=== PATIENT | female | born 1960 | race Caucasian/White ===

== ENCOUNTER 2016-11-06 06:11 | Day surgery (SDC) | payer BC ==
[~2016-11-06 06:11] MED LIST: ALPRAZOLAM0.5 M3 PO; ASPIRIN325 M3 PO; ATIVAN0.5 MG PO; ATORVASTATIN CA20 MG PO; BABY ASPIRIN81 MG PO; CALTRATE 600 W1 EACH PO; CIPRO750 M1 PO; CRESTOR5 M1 PO; CYCLOBENZAPRINE10 M1 PO; ENTERIC COATED325 M PO; FETZIMA120 MG PO; GABAPENTIN300 MG PO; KEFLEX250 MG PO; KEFLEX500 M2 PO; LORAZEPAM0.5 MG PO; LOVASTATIN PO; MULTIVITAMIN; NORCO 5-325 TA1 EACH PO; SERTRALINE HCL PO; SIMVASTATIN; SYNTHROID100 MCG PO; SYNTHROID125 MCG; SYNTHROID88 MC1 PO; VITAMIN D; WELCHOL625 MG PO; ZOFRAN ODT4 MG PO; ZOLOFT100 MG; ZOLOFT100 MG PO; ZOVIRAX OINTMEN15 GM AP; [UNRECOGNIZED DRUG - OTHER]; [UNRECOGNIZED DRUG - OTHER]
== END 2016-11-06 09:20 ==
LOC: ENDOS 06:11 → SHSA 06:12 → ENDOS 08:17
PROC: 0DB48ZX Excision of Esophagogastric Junction, Via Natural or Artificial Opening Endoscopic, Diagnostic (ICD-10-PCS; principal; 2016-11-06)
PROC: 0DB68ZX Excision of Stomach, Via Natural or Artificial Opening Endoscopic, Diagnostic (ICD-10-PCS; 2016-11-06)
PROC: 0DB98ZX Excision of Duodenum, Via Natural or Artificial Opening Endoscopic, Diagnostic (ICD-10-PCS; 2016-11-06)
DX: K31.7 Polyp of stomach and duodenum (principal); I10 Essential (primary) hypertension; E03.9 Hypothyroidism, unspecified; F41.9 Anxiety disorder, unspecified; F32.9 Major depressive disorder, single episode, unspecified; M79.7 Fibromyalgia; G47.00 Insomnia, unspecified; K21.9 Gastro-esophageal reflux disease without esophagitis; M81.0 Age-related osteoporosis without current pathological fracture; Z79.82 Long term (current) use of aspirin; Z79.899 Other long term (current) drug therapy; Z88.1 Allergy status to other antibiotic agents; Z88.2 Allergy status to sulfonamides; Z88.8 Allergy status to other drugs, medicaments and biological substances; Z87.442 Personal history of urinary calculi; Z87.891 Personal history of nicotine dependence; Z80.0 Family history of malignant neoplasm of digestive organs; Z90.49 Acquired absence of other specified parts of digestive tract; Z90.710 Acquired absence of both cervix and uterus; Z98.890 Other specified postprocedural states